=== PATIENT | female | born 1970 | race Caucasian/White ===

== ENCOUNTER 2016-11-07 10:36 | Inpatient (IN) | payer BC ==
[~2016-11-07] VITALS: Ht 160 cm; Wt 60.0 kg
[~2016-11-07 10:36] MED LIST: ASPIRIN81 MG PO; ATIVAN1 MG PO; BYSTOLIC2.5 MG PO; CELEXA40 MG PO; FIBRICOR35 MG PO; LANOXIN0.5 MG PO; LEVOTHYROXINE0.05 MG PO; LIDEX 0.05% GEL60 GM PO; NALTREXONE PO; NEXIUM40 MG PO; PREDNICOT20 MG PO; RESTORIL15 MG PO; SKELAXIN800 MG PO; SYNTHROID0.05 MG PO; ULTRAM50 MG PO; VICODIN ES 7501 TAB PO; ZITHROMAX Z PA250 MG PO
[2016-11-07] MEDS ORDERED: Lopressor25 MG PO (10:41)
[2016-11-07 10:43] VITALS: BP 120/76
[2016-11-07 11:09] LABS: BASO % 0.7 % (0.0-1.0); EOS # 0.2 10*3/uL (0.0-0.4); EOS % 3.9 % (1.0-4.0); HEMATOCRIT 41.8 % (37.0-47.0); HEMOGLOBIN 14.2 g/dl (12.0-16.0); LYMPH # 2.1 10*3/uL (1.3-4.4); LYMPH % 34.9 % (27.0-41.0); MEAN CELL VOLUME 87.1 fl (81.0-99.0); MEAN CORPUSCULAR HGB 29.6 pg (27.0-31.0); MONO # 0.4 10*3/uL (0.1-1.0); MONO % 7.4 % (3.0-9.0); NEUT # 3.1 10*3/uL (2.3-7.9); NEUT % 52.8 % (47.0-73.0); PLATELET COUNT AUTOMATED 315 10*3/uL (130-400); WHITE BLOOD COUNT 5.9 10*3/uL (4.8-10.8)
[2016-11-07 11:25] LABS: ALBUMIN 4.2 gm/dl (3.1-4.5); ALKALINE PHOSPHATASE 111 U/L (45-117); BILIRUBIN, TOTAL 0.6 mg/dl (0.2-1.0); BUN 12 mg/dl (7-24); CARBON DIOXIDE 28 mmol/L (21-32); CHLORIDE 104 mmol/L (98-107); EST GLOM FILT AFRICAN AMERICAN > 60 ml/min; GLUCOSE 98 mg/dL (65-99); POTASSIUM 4.8 mmol/L (3.5-5.1); SGOT/AST 16 IU/L (3-35); SGPT/ALT 20 U/L (12-78); SODIUM 141 mmol/L (136-145); TOTAL PROTEIN 7.7 gm/dL (6.4-8.2)
[2016-11-07 11:27] LABS: TROPONIN I < 0.015 ng/ml (<0.045)
[2016-11-07 11:32] LABS: BILIRUBIN NEGATIVE (NEGATIVE); BLOOD NEGATIVE (NEGATIVE); CLARITY CLEAR (CLEAR); COLOR YELLOW (YELLOW); GLUCOSE NEGATIVE (NEGATIVE); KETONE NEGATIVE (NEGATIVE); LEUKO ESTERASE TRACE (NEGATIVE); NITRITE NEGATIVE (NEGATIVE); PH 6.5 (5.0-9.0); PROTEIN NEGATIVE (NEGATIVE); SPECIFIC GRAVITY <= 1.005 (1.005-1.030); UROBILINOGEN 0.2 E.U./dl (0.2-1.0)
[2016-11-07 11:42] LABS: BACTERIA TRACE; RBC 0-2 rbc/hpf (0-2); URINE REFLEX COMMENT YES (NO)
[2016-11-07 12:41] VITALS: BP 106/61
[2016-11-07 13:54] VITALS: BP 100/70
[2016-11-07 14:30] VITALS: BP 117/70
[2016-11-07 16:00] VITALS: BP 109/70
[2016-11-07 18:32] LABS: CKMB < 0.5 ng/ml (0.5-3.6); CPK 49 U/L (26-192); TROPONIN I < 0.015 ng/ml (<0.045)
[2016-11-07 20:00] VITALS: BP 113/64
[2016-11-08] VITALS: BP 106/70
[2016-11-08 00:18] LABS: CPK 52 U/L (26-192)
[2016-11-08 00:19] LABS: CKMB < 0.5 ng/ml (0.5-3.6)
[2016-11-08 06:16] LABS: BASO % 0.7 % (0.0-1.0); EOS # 0.2 10*3/uL (0.0-0.4); EOS % 4.1 % (1.0-4.0); HEMATOCRIT 39.1 % (37.0-47.0); HEMOGLOBIN 13.1 g/dl (12.0-16.0); LYMPH # 2.5 10*3/uL (1.3-4.4); LYMPH % 45.4 % (27.0-41.0); MEAN CELL VOLUME 88.7 fl (81.0-99.0); MEAN CORPUSCULAR HGB 29.7 pg (27.0-31.0); MEAN CORPUSCULAR HGB CONC 33.5 g/dl (33.0-37.0); MONO # 0.5 10*3/uL (0.1-1.0); NEUT # 2.3 10*3/uL (2.3-7.9); NEUT % 41.6 % (47.0-73.0); PLATELET COUNT AUTOMATED 256 10*3/uL (130-400); RED BLOOD COUNT 4.41 10*6/uL (4.10-5.10); WHITE BLOOD COUNT 5.6 10*3/uL (4.8-10.8)
[2016-11-08 06:27] LABS: CHLORIDE 109 mmol/L (98-107); POTASSIUM 4.1 mmol/L (3.5-5.1); SODIUM 143 mmol/L (136-145)
[2016-11-08 06:38] LABS: CPK 51 U/L (26-192)
[2016-11-08 06:39] LABS: ALBUMIN 3.4 gm/dl (3.1-4.5); ALKALINE PHOSPHATASE 93 U/L (45-117); BILIRUBIN, TOTAL 0.6 mg/dl (0.2-1.0); BUN 9 mg/dl (7-24); CARBON DIOXIDE 25 mmol/L (21-32); CHOLESTEROL 186 mg/dL (<200); EST GLOM FILT AFRICAN AMERICAN > 60 ml/min; GLUCOSE 97 mg/dL (65-99); HDL CHOLESTEROL 70 mg/dl (40-60); INTERNATIONAL NORM RATIO 1.1 (2.0-3.5); LDL CHOLESTEROL 101 mg/dL (9-159); PHOSPHOROUS 4.2 mg/dL (2.5-4.9); PROTHROMBIN TIME 11.2 SECONDS (9.0-12.4); SGOT/AST 19 IU/L (3-35); SGPT/ALT 21 U/L (12-78); TOTAL PROTEIN 6.5 gm/dL (6.4-8.2); TRIGLYCERIDES 73 mg/dl (<150); VLDL CHOLESTEROL 15 mg/dL (6-40)
[2016-11-08 06:44] LABS: CKMB < 0.5 ng/ml (0.5-3.6)
[2016-11-08 06:50] LABS: HEMOGLOBIN A1c 5.7 % (4.8-5.6)
[2016-11-08 07:18] LABS: FOLIC ACID 15.31 ng/mL (>5.38); VITAMIN D, 25-HYDROXY 32.2 ng/mL (30-100)
[2016-11-08 08:00] VITALS: BP 108/66
[2016-11-08 12:00] VITALS: BP 102/66
[2016-11-08 16:00] VITALS: BP 110/59
[2016-11-08 20:00] VITALS: BP 104/51
[2016-11-09] VITALS: BP 96/51
[2016-11-09 08:00] VITALS: BP 100/62
[2016-11-09] MEDS ORDERED: Synthroid,Levo50 MCG PO (09:38)
[2016-11-09 12:00] VITALS: BP 106/50
[2016-11-09] MEDS ORDERED: B12,B-12,B 12500 MC1 PO (12:09)
[2016-11-09] MEDS ORDERED: SYNTHROID,LEVO75 MCG PO (12:09)
== END 2016-11-09 14:40 | disposition home or self-care (01) | DRG 312 ==
LOC: ED 10:36 → 5E 13:11 → EDHOLD 13:11 → 5E 13:33
PROVIDERS: Hospitalist; Physician Assistant
DX: R55 Syncope and collapse (principal); E53.8 Deficiency of other specified B group vitamins; R42 Dizziness and giddiness; R53.1 Weakness; F41.9 Anxiety disorder, unspecified; E03.9 Hypothyroidism, unspecified; I05.0 Rheumatic mitral stenosis; R00.2 Palpitations; Z88.8 Allergy status to other drugs, medicaments and biological substances; Z79.899 Other long term (current) drug therapy; Z90.710 Acquired absence of both cervix and uterus; Z86.73 Personal history of transient ischemic attack (TIA), and cerebral infarction without residual deficits; Z82.49 Family history of ischemic heart disease and other diseases of the circulatory system

== ENCOUNTER 2017-06-03 15:06 | Inpatient (IN) | payer BC, MEDICARE ==
[~2017-06-03] VITALS: Ht 160 cm; Wt 67.1 kg
[~2017-06-03 15:06] MED LIST changes: +B12,B-12,B 12500 MC1 PO; +Lopressor25 MG PO; +SYNTHROID,LEVO75 MCG PO; +Synthroid,Levo50 MCG PO
[2017-06-03 15:25] VITALS: BP 100/48
[2017-06-03 15:40] LABS: BASO % 0.3 % (0.0-1.0); EOS # 0.2 10*3/uL (0.0-0.4); EOS % 2.8 % (1.0-4.0); HEMATOCRIT 41.4 % (37.0-47.0); LYMPH # 2.1 10*3/uL (1.3-4.4); MEAN CELL VOLUME 85.2 fl (81.0-99.0); MEAN CORPUSCULAR HGB 28.8 pg (27.0-31.0); MEAN CORPUSCULAR HGB CONC 33.8 g/dl (33.0-37.0); MEAN PLATELET VOLUME 8.9 fl (9.6-12.3); MONO # 0.5 10*3/uL (0.1-1.0); MONO % 6.7 % (3.0-9.0); NEUT # 4.1 10*3/uL (2.3-7.9); NEUT % 58.9 % (47.0-73.0); PLATELET COUNT AUTOMATED 353 10*3/uL (130-400); RED BLOOD COUNT 4.86 10*6/uL (4.10-5.10); RED CELL DISTRI WIDTH 11.8 % (0-14.5); WHITE BLOOD COUNT 6.9 10*3/uL (4.8-10.8)
[2017-06-03 15:53] LABS: ACT PARTIAL THROMBO TIME 26.1 SECONDS (20.8-31.5)
[2017-06-03 15:57] LABS: ALBUMIN 4.1 gm/dl (3.1-4.5); ALKALINE PHOSPHATASE 145 U/L (45-117); BUN 13 mg/dl (7-24); CHLORIDE 106 mmol/L (98-107); CREATININE 0.82 mg/dL (0.55-1.02); POTASSIUM 4.4 mmol/L (3.5-5.1); SGOT/AST 43 IU/L (3-35); SGPT/ALT 62 U/L (12-78); SODIUM 141 mmol/L (136-145); TOTAL PROTEIN 7.5 gm/dL (6.4-8.2)
[2017-06-03 16:00] LABS: TROPONIN I < 0.015 ng/ml (<0.045)
[2017-06-03 17:10] VITALS: BP 92/68
[2017-06-03 17:29] VITALS: BP 93/45
[2017-06-03] MEDS ORDERED: GABAPENTIN100 M2 PO (18:15)
[2017-06-03] MEDS ORDERED: LEVOXYL88 MCG PO (18:17)
[2017-06-03] MEDS ORDERED: B-121000 MCG PO (18:18)
[2017-06-03 20:05] VITALS: BP 117/70
[2017-06-04] VITALS: BP 117/59
[2017-06-04 05:32] LABS: BILIRUBIN NEGATIVE (NEGATIVE); BLOOD NEGATIVE (NEGATIVE); CLARITY SL CLOUDY (CLEAR); COLOR YELLOW (YELLOW); GLUCOSE NEGATIVE (NEGATIVE); KETONE NEGATIVE (NEGATIVE); LEUKO ESTERASE 1+ (NEGATIVE); NITRITE NEGATIVE (NEGATIVE); UROBILINOGEN 0.2 E.U./dl (0.2-1.0)
[2017-06-04 05:42] LABS: BACTERIA TRACE; WBC 21-30 wbc/hpf (0-5)
[2017-06-04 05:53] LABS: BASO % 0.3 % (0.0-1.0); EOS # 0.3 10*3/uL (0.0-0.4); EOS % 3.6 % (1.0-4.0); HEMOGLOBIN 12.1 g/dl (12.0-16.0); LYMPH # 2.8 10*3/uL (1.3-4.4); LYMPH % 38.9 % (27.0-41.0); MEAN CELL VOLUME 84.9 fl (81.0-99.0); MEAN CORPUSCULAR HGB 29.1 pg (27.0-31.0); MEAN CORPUSCULAR HGB CONC 34.3 g/dl (33.0-37.0); MEAN PLATELET VOLUME 9.4 fl (9.6-12.3); MONO # 0.6 10*3/uL (0.1-1.0); MONO % 7.7 % (3.0-9.0); NEUT # 3.6 10*3/uL (2.3-7.9); NEUT % 49.4 % (47.0-73.0); PLATELET COUNT AUTOMATED 305 10*3/uL (130-400); RED BLOOD COUNT 4.16 10*6/uL (4.10-5.10); RED CELL DISTRI WIDTH 11.8 % (0-14.5); WHITE BLOOD COUNT 7.2 10*3/uL (4.8-10.8)
[2017-06-04 05:54] LABS: ALBUMIN 3.1 gm/dl (3.1-4.5); ALKALINE PHOSPHATASE 123 U/L (45-117); BUN 8 mg/dl (7-24); CHLORIDE 111 mmol/L (98-107); CHOLESTEROL 130 mg/dL (<200); CREATININE 0.75 mg/dL (0.55-1.02); FREE T4 1.07 ng/dl (0.76-1.46); HDL CHOLESTEROL 58 mg/dl (40-60); HEMATOCRIT 35.3 % (37.0-47.0); LDL CHOLESTEROL 56 mg/dL (9-159); PHOSPHOROUS 3.9 mg/dL (2.5-4.9); POTASSIUM 3.9 mmol/L (3.5-5.1); SGOT/AST 32 IU/L (3-35); SGPT/ALT 48 U/L (12-78); SODIUM 144 mmol/L (136-145); TOTAL PROTEIN 5.9 gm/dL (6.4-8.2); TRIGLYCERIDES 81 mg/dl (<150); VLDL CHOLESTEROL 16 mg/dL (6-40)
[2017-06-04 07:30] VITALS: BP 118/72
[2017-06-04 07:36] LABS: VITAMIN D, 25-HYDROXY 21.5 ng/mL (30-100)
[2017-06-04 11:15] VITALS: BP 119/58
[2017-06-04] MEDS ORDERED: VITAMIN D31000 UNI1 PO (12:34)
== END 2017-06-04 15:50 | disposition home or self-care (01) | DRG 552 ==
LOC: ED 15:06 → EDHOLD 17:02 → 4E 17:02
PROVIDERS: Emergency Medicine; Family Medicine
DX: S32.10XA Unspecified fracture of sacrum, initial encounter for closed fracture (principal); I95.9 Hypotension, unspecified; E83.41 Hypermagnesemia; F33.9 Major depressive disorder, recurrent, unspecified; R55 Syncope and collapse; R73.9 Hyperglycemia, unspecified; I00 Rheumatic fever without heart involvement; G44.319 Acute post-traumatic headache, not intractable; F41.9 Anxiety disorder, unspecified; N80.9 Endometriosis, unspecified; M79.7 Fibromyalgia; E53.8 Deficiency of other specified B group vitamins; E03.9 Hypothyroidism, unspecified; W18.39XA Other fall on same level, initial encounter; Y93.89 Activity, other specified; Y92.89 Other specified places as the place of occurrence of the external cause; Y99.8 Other external cause status; Z88.8 Allergy status to other drugs, medicaments and biological substances; Z86.79 Personal history of other diseases of the circulatory system; Z90.49 Acquired absence of other specified parts of digestive tract; Z90.710 Acquired absence of both cervix and uterus

== ENCOUNTER 2019-02-02 11:36 | Inpatient (IN) | payer MEDICARE ==
[~2019-02-02] VITALS: Ht 160 cm; Wt 62.7 kg
[2019-02-02 11:36] VITALS: BP 105/66
[~2019-02-02 11:36] MED LIST changes: +B-121000 MCG PO; +GABAPENTIN100 M2 PO; +LEVOXYL88 MCG PO; +VITAMIN D31000 UNI1 PO
[2019-02-02 11:56] LABS: BASO # 0.1 10*3/uL (0.0-0.1); BASO % 0.8 % (0.0-1.0); EOS # 0.2 10*3/uL (0.0-0.4); EOS % 3.1 % (1.0-4.0); HEMATOCRIT 41.5 % (37.0-47.0); LYMPH # 2.2 10*3/uL (1.3-4.4); LYMPH % 34.6 % (27.0-41.0); MEAN CELL VOLUME 86.6 fl (81.0-99.0); MEAN CORPUSCULAR HGB 29.2 pg (27.0-31.0); MEAN CORPUSCULAR HGB CONC 33.7 g/dl (33.0-37.0); MEAN PLATELET VOLUME 9.3 fl (9.6-12.3); MONO # 0.4 10*3/uL (0.1-1.0); MONO % 6.9 % (3.0-9.0); NEUT # 3.5 10*3/uL (2.3-7.9); NEUT % 54.1 % (47.0-73.0); PLATELET COUNT AUTOMATED 343 10*3/uL (130-400); RED BLOOD COUNT 4.79 10*6/uL (4.10-5.10); RED CELL DISTRI WIDTH 11.8 % (0-14.5); WHITE BLOOD COUNT 6.4 10*3/uL (4.8-10.8)
[2019-02-02 12:07] LABS: ACT PARTIAL THROMBO TIME 24.2 SECONDS (20.0-32.1)
[2019-02-02 12:14] LABS: ALKALINE PHOSPHATASE 105 U/L (45-117); BUN 15 mg/dl (7-24); CHLORIDE 107 mmol/L (98-107); CREATININE 1.01 mg/dL (0.55-1.02); POTASSIUM 4.5 mmol/L (3.5-5.1); SGOT/AST 15 IU/L (3-35); SGPT/ALT 19 U/L (12-78); SODIUM 138 mmol/L (136-145); TOTAL PROTEIN 7.6 gm/dL (6.4-8.2)
[2019-02-02 12:21] LABS: TROPONIN I < 0.015 ng/ml (<0.045)
[2019-02-02 12:25] VITALS: BP 114/59
--- NOTE | 2019-02-02 13:50 | NUR ---
A 48, admitted to , under the services of ELMER Oropeza DO with a diagnosis of SYNCOPE & COLLAPSE. Chief complaint is PASSED OUT X2. Patient arrived via ambulance from ER. Monitor applied. Initial assessment completed. Vital signs taken and recorded. ELMER OROPEZA DO notified of admission to the unit. Orders received. See assessment for past medical history, medications and allergies. Patient and/or family oriented to unit. [facility] visitation policy reviewed. Clothing/patient valuable form completed. VIKASH HARMAN
[2019-02-02 14:04] VITALS: BP 121/64
--- NOTE | 2019-02-02 15:49 | NUR ---
ORTHOSTATIC BP TAKEN AT THIS TIME PER ORDER, PT ASYMPTOMATIC.
[2019-02-02 16:00] VITALS: BP 103/65
--- NOTE | 2019-02-02 19:30 | NUR ---
24 HR chart check completed.
[2019-02-02 20:00] VITALS: BP 112/69
--- NOTE | 2019-02-02 21:00 | NUR ---
RESTING IN BED VISITING WITH FRIEND. RESPIRATIONS EASY. LUNGS DIMINISHED, CLEAR. PULSE OX 98% RA. IV FLUIDS INFUSING PER ORDER. CALL LIGHT WITHIN REACH. NO VOICED COMPLAINTS.
[2019-02-03] VITALS: BP 104/58
--- NOTE | 2019-02-03 | NUR ---
SLEEPING. NO DISTRESS NOTED. RESPIRATIONS EASY. VSS. IV FLUIDS MAINTAINED. CALL LIGHT WITHIN REACH
[2019-02-03] MEDS ORDERED: Synthroid,Levo88 MCG PO (00:04)
--- NOTE | 2019-02-03 06:00 | NUR ---
SLEPT THROUGHOUT NIGHT WITH NO DISTRESS NOTED. RESPIRATIONS EASY. IV FLUIDS MAINTAINED. CALL LIGHT WITHIN REACH. NO VOICED COMPLAINTS THIS SHIFT
[2019-02-03 07:12] LABS: BASO % 0.6 % (0.0-1.0); EOS # 0.2 10*3/uL (0.0-0.4); EOS % 3.2 % (1.0-4.0); HEMOGLOBIN 12.5 g/dl (12.0-16.0); LYMPH # 2.8 10*3/uL (1.3-4.4); LYMPH % 39.7 % (27.0-41.0); MEAN CELL VOLUME 89.4 fl (81.0-99.0); MEAN CORPUSCULAR HGB 28.7 pg (27.0-31.0); MEAN CORPUSCULAR HGB CONC 32.1 g/dl (33.0-37.0); MEAN PLATELET VOLUME 9.8 fl (9.6-12.3); MONO # 0.6 10*3/uL (0.1-1.0); NEUT # 3.4 10*3/uL (2.3-7.9); NEUT % 48.2 % (47.0-73.0); PLATELET COUNT AUTOMATED 320 10*3/uL (130-400); RED BLOOD COUNT 4.36 10*6/uL (4.10-5.10); RED CELL DISTRI WIDTH 11.9 % (0-14.5); WHITE BLOOD COUNT 7.1 10*3/uL (4.8-10.8)
[2019-02-03 07:19] LABS: BUN 7 mg/dl (7-24); CHLORIDE 112 mmol/L (98-107); CHOLESTEROL 144 mg/dL (<200); CREATININE 0.79 mg/dL (0.55-1.02); PHOSPHOROUS 3.1 mg/dL (2.5-4.9); POTASSIUM 3.7 mmol/L (3.5-5.1); SODIUM 143 mmol/L (136-145); TRIGLYCERIDES 93 mg/dl (<150); VLDL CHOLESTEROL 19 mg/dL (6-40)
[2019-02-03 07:29] LABS: FREE T4 0.87 ng/dl (0.76-1.46); HDL CHOLESTEROL 62 mg/dl (40-60); LDL CHOLESTEROL 63 mg/dL (9-159)
[2019-02-03 07:44] LABS: VITAMIN D, 25-HYDROXY 24.6 ng/mL (30-100)
[2019-02-03 08:00] VITALS: BP 98/54
--- NOTE | 2019-02-03 09:00 | NUR ---
Director Of Business Continuity in to talk to patient. Patient states lives at home with family. There are few steps in the home. Physician: feliciano spnecer [facility] Patient's level of ADLs: INDEPENDENT Patient has working utilities: all working DME: none Follow-up physician's appointment after d/c: will be made by hospitalist nurse director upon discharge Does patient want to access PORTAL?: no Discharge plan discussed with patient, she states she lives at home with family, she is independent in adls and ambulation, she states she will return home when medically stable for discharge. ANITRA SCHOFIELD
[2019-02-03 12:00] VITALS: BP 120/65
--- NOTE | 2019-02-03 16:30 | NUR ---
PATIENT DISCHARGED TO HOME. ALL PERSONAL BELONGINGS SENT WITH PATIENT. IV AND CANE STRIPPER DISCONTINUED. DISCHARGE INSTRUCTIONS GIVEN AND REVIEWED WITH PATIENT. PATIENT INFORMED OF FOLLOW UP APPOINTMENT WITH ON 02/06 AT 1PM.
== END 2019-02-03 16:30 | disposition home or self-care (01) | DRG 312 ==
LOC: ED 11:36 → EDHOLD 12:52 → 4E 12:52
PROVIDERS: Emergency Medicine; Internal Medicine; ADMIT Internal Medicine
DX: R55 Syncope and collapse (principal); R53.1 Weakness; R42 Dizziness and giddiness; F32.9 Major depressive disorder, single episode, unspecified; F41.9 Anxiety disorder, unspecified; E03.9 Hypothyroidism, unspecified; E53.8 Deficiency of other specified B group vitamins; M79.7 Fibromyalgia; K21.9 Gastro-esophageal reflux disease without esophagitis; Z88.8 Allergy status to other drugs, medicaments and biological substances; Z86.73 Personal history of transient ischemic attack (TIA), and cerebral infarction without residual deficits; Z90.49 Acquired absence of other specified parts of digestive tract; Z90.710 Acquired absence of both cervix and uterus; Z83.49 Family history of other endocrine, nutritional and metabolic diseases; Z82.49 Family history of ischemic heart disease and other diseases of the circulatory system; Z80.8 Family history of malignant neoplasm of other organs or systems; Z79.890 Hormone replacement therapy; Z95.2 Presence of prosthetic heart valve

== ENCOUNTER 2020-02-08 18:13 | Observation (INO) | payer MEDICARE ==
[~2020-02-08] VITALS: Ht 160 cm; Wt 65.4 kg
[~2020-02-08 18:13] MED LIST changes: +Synthroid,Levo88 MCG PO
[2020-02-08 18:34] VITALS: BP 132/73
[2020-02-08 18:53] LABS: BASO % 0.5 % (0.0-1.0); EOS # 0.2 10*3/uL (0.0-0.4); EOS % 3.2 % (1.0-4.0); LYMPH # 2.6 10*3/uL (1.3-4.4); LYMPH % 34.2 % (27.0-41.0); MEAN CELL VOLUME 88.5 fl (81.0-99.0); MEAN CORPUSCULAR HGB 28.8 pg (27.0-31.0); MEAN CORPUSCULAR HGB CONC 32.5 g/dl (33.0-37.0); MEAN PLATELET VOLUME 8.9 fl (9.6-12.3); MONO # 0.6 10*3/uL (0.1-1.0); MONO % 7.6 % (3.0-9.0); NEUT # 4.1 10*3/uL (2.3-7.9); NEUT % 54.2 % (47.0-73.0); PLATELET COUNT AUTOMATED 360 10*3/uL (130-400); RED BLOOD COUNT 4.52 10*6/uL (4.10-5.10); WHITE BLOOD COUNT 7.5 10*3/uL (4.8-10.8)
[2020-02-08 19:03] LABS: ACT PARTIAL THROMBO TIME 27.8 SECONDS (20.0-32.1)
[2020-02-08 19:13] LABS: ALBUMIN 3.8 gm/dl (3.1-4.5); ALKALINE PHOSPHATASE 123 U/L (45-117); BUN 11 mg/dl (7-24); CHLORIDE 109 mmol/L (98-107); CREATININE 1.54 mg/dL (0.55-1.02); POTASSIUM 4.9 mmol/L (3.5-5.1); SGOT/AST 35 IU/L (3-35); SGPT/ALT 49 U/L (12-78); SODIUM 141 mmol/L (136-145); TOTAL PROTEIN 7.2 gm/dL (6.4-8.2)
[2020-02-08 19:19] LABS: TROPONIN I < 0.015 ng/ml (<0.045)
[2020-02-08 20:47] VITALS: BP 112/64
[2020-02-08 21:11] VITALS: BP 118/65
[2020-02-08] MEDS ORDERED: Synthroid,Lev100 MCG PO (22:11)
[2020-02-09] VITALS: BP 124/65
[2020-02-09 05:57] LABS: ALBUMIN 3.3 gm/dl (3.1-4.5); ALKALINE PHOSPHATASE 104 U/L (45-117); BUN 11 mg/dl (7-24); CHLORIDE 113 mmol/L (98-107); CHOLESTEROL 147 mg/dL (<200); CREATININE 0.91 mg/dL (0.55-1.02); FREE T4 1.14 ng/dl (0.76-1.46); HDL CHOLESTEROL 63 mg/dl (40-60); LDL CHOLESTEROL 66 mg/dL (9-159); SGOT/AST 24 IU/L (3-35); SGPT/ALT 38 U/L (12-78); SODIUM 143 mmol/L (136-145); TOTAL PROTEIN 6.3 gm/dL (6.4-8.2); TRIGLYCERIDES 92 mg/dl (<150); VLDL CHOLESTEROL 18 mg/dL (6-40)
[2020-02-09 06:14] LABS: BASO % 0.6 % (0.0-1.0); EOS # 0.3 10*3/uL (0.0-0.4); EOS % 4.7 % (1.0-4.0); LYMPH # 2.7 10*3/uL (1.3-4.4); LYMPH % 44.1 % (27.0-41.0); MEAN CORPUSCULAR HGB 28.8 pg (27.0-31.0); MEAN CORPUSCULAR HGB CONC 32.3 g/dl (33.0-37.0); MEAN PLATELET VOLUME 9.4 fl (9.6-12.3); MONO # 0.4 10*3/uL (0.1-1.0); MONO % 6.9 % (3.0-9.0); NEUT # 2.7 10*3/uL (2.3-7.9); NEUT % 43.5 % (47.0-73.0); PLATELET COUNT AUTOMATED 335 10*3/uL (130-400); RED BLOOD COUNT 4.38 10*6/uL (4.10-5.10); RED CELL DISTRI WIDTH 11.9 % (0-14.5); WHITE BLOOD COUNT 6.2 10*3/uL (4.8-10.8)
[2020-02-09 06:18] LABS: ACT PARTIAL THROMBO TIME 29.4 SECONDS (20.0-32.1)
[2020-02-09 08:00] VITALS: BP 111/75
[2020-02-09 12:00] VITALS: BP 118/74
== END 2020-02-09 16:06 | disposition home or self-care (01) ==
LOC: ED 18:13 → EDHOLD 20:15 → 5E 21:07
PROVIDERS: Emergency Medicine; Internal Medicine; ADMIT Internal Medicine; ATTEND Internal Medicine
DX: R07.89 Other chest pain (principal); E87.8 Other disorders of electrolyte and fluid balance, not elsewhere classified; E83.41 Hypermagnesemia; R06.00 Dyspnea, unspecified; F41.9 Anxiety disorder, unspecified; E03.9 Hypothyroidism, unspecified; N17.0 Acute kidney failure with tubular necrosis; E53.8 Deficiency of other specified B group vitamins; M79.7 Fibromyalgia; F32.9 Major depressive disorder, single episode, unspecified; K21.9 Gastro-esophageal reflux disease without esophagitis

== ENCOUNTER 2020-07-13 04:44 | Emergency (ER) | payer BC, MEDICARE ==
[~2020-07-13 04:44] MED LIST changes: +Synthroid,Lev100 MCG PO
[2020-07-13 05:08] VITALS: BP 124/76
[2020-07-13] MEDS ORDERED: NAPROXEN250 MG PO (06:05)
[2020-07-13] MEDS ORDERED: ROBAXIN-750750 MG PO (06:05)
== END 2020-07-13 06:32 | disposition home or self-care (01) ==
LOC: ED 04:44
DX: M54.6 Pain in thoracic spine (principal); K21.9 Gastro-esophageal reflux disease without esophagitis; Z88.8 Allergy status to other drugs, medicaments and biological substances; Z79.899 Other long term (current) drug therapy; Z90.711 Acquired absence of uterus with remaining cervical stump; Z95.818 Presence of other cardiac implants and grafts; Z90.49 Acquired absence of other specified parts of digestive tract; Z95.2 Presence of prosthetic heart valve; Z98.890 Other specified postprocedural states; Z86.73 Personal history of transient ischemic attack (TIA), and cerebral infarction without residual deficits

== ENCOUNTER → 2020-12-07 | Outpatient (CLI) | payer BC, MEDICARE ==
[~2020-12-07] MED LIST changes: +NAPROXEN250 MG PO; +ROBAXIN-750750 MG PO
== END | disposition home or self-care (01) ==
LOC: US 10:50
PROVIDERS: ATTEND Family Medicine
DX: K76.89 Other specified diseases of liver (principal); R74.8 Abnormal levels of other serum enzymes

== ENCOUNTER → 2020-12-27 | Outpatient (CLI) | payer BC, MEDICARE ==
[2020-12-27 09:38] LABS: BASO % 0.7 % (0.0-1.0); EOS # 0.2 10*3/uL (0.0-0.4); EOS % 3.7 % (1.0-4.0); HEMATOCRIT 41.4 % (37.0-47.0); LYMPH % 33.2 % (27.0-41.0); MEAN CELL VOLUME 87.9 fl (81.0-99.0); MEAN CORPUSCULAR HGB 29.1 pg (27.0-31.0); MEAN CORPUSCULAR HGB CONC 33.1 g/dl (33.0-37.0); MEAN PLATELET VOLUME 8.9 fl (9.6-12.3); MONO # 0.4 10*3/uL (0.1-1.0); NEUT # 3.4 10*3/uL (2.3-7.9); NEUT % 55.1 % (47.0-73.0); PLATELET COUNT AUTOMATED 356 10*3/uL (130-400); RED BLOOD COUNT 4.71 10*6/uL (4.10-5.10); RED CELL DISTRI WIDTH 12.2 % (0-14.5); WHITE BLOOD COUNT 6.2 10*3/uL (4.8-10.8)
[2020-12-27 09:58] LABS: TOTAL PROTEIN 7.5 gm/dL (6.4-8.2)
[2020-12-28 08:07] LABS: HEPATITIS A AB, TOTAL Negative (Negative); HEPATITIS B SURFACE AB Non Reactive (.)
[2020-12-30 00:06] LABS: AST (SGOT) P5P 37 IU/L (0-40); CHOLESTEROL, TOTAL 196 mg/dL (100-199); GLUCOSE, SERUM 102 mg/dL (65-99); TRIGLYCERIDES 89 mg/dL (0-149)
== END | disposition home or self-care (01) ==
LOC: LAB 09:13
PROVIDERS: ATTEND Physician Assistant
DX: Z11.59 Encounter for screening for other viral diseases (principal); K76.0 Fatty (change of) liver, not elsewhere classified; R74.8 Abnormal levels of other serum enzymes; Z72.89 Other problems related to lifestyle

== ENCOUNTER 2021-01-18 10:16 | Emergency (ER) | payer BC, MEDICARE ==
[~2021-01-18] VITALS: Ht 160 cm; Wt 63.0 kg
[2021-01-18 10:32] VITALS: BP 147/82
== END 2021-01-18 13:59 | disposition home or self-care (01) ==
LOC: ED 10:16
DX: J02.9 Acute pharyngitis, unspecified (principal); Z20.822 Contact with and (suspected) exposure to COVID-19; R09.89 Other specified symptoms and signs involving the circulatory and respiratory systems; R11.0 Nausea; R53.83 Other fatigue; Z88.8 Allergy status to other drugs, medicaments and biological substances; Z79.899 Other long term (current) drug therapy

== ENCOUNTER 2021-04-26 21:46 | Inpatient (IN) | payer BC, MEDICARE ==
[~2021-04-26] VITALS: Ht 160 cm; Wt 65.4 kg
[2021-04-26 21:58] VITALS: BP 126/72
[2021-04-26 23:15] LABS: BASO % 0.1 % (0.0-1.0); EOS % 0.4 % (1.0-4.0); HEMATOCRIT 41.9 % (37.0-47.0); LYMPH # 1.5 10*3/uL (1.3-4.4); LYMPH % 17.8 % (27.0-41.0); MEAN CELL VOLUME 87.1 fl (81.0-99.0); MEAN CORPUSCULAR HGB 29.3 pg (27.0-31.0); MEAN CORPUSCULAR HGB CONC 33.7 g/dl (33.0-37.0); MEAN PLATELET VOLUME 8.7 fl (9.6-12.3); MONO # 0.8 10*3/uL (0.1-1.0); MONO % 9.9 % (3.0-9.0); NEUT % 71.4 % (47.0-73.0); PLATELET COUNT AUTOMATED 266 10*3/uL (130-400); RED BLOOD COUNT 4.81 10*6/uL (4.10-5.10); RED CELL DISTRI WIDTH 11.9 % (0-14.5); WHITE BLOOD COUNT 8.4 10*3/uL (4.8-10.8)
[2021-04-26 23:32] LABS: ALBUMIN 3.6 gm/dl (3.1-4.5); ALKALINE PHOSPHATASE 157 U/L (45-117); BUN 9 mg/dl (7-24); CHLORIDE 105 mmol/L (98-107); LIPASE 174 U/L (73-393); POTASSIUM 3.8 mmol/L (3.5-5.1); SGOT/AST 35 IU/L (3-35); SGPT/ALT 69 U/L (12-78); SODIUM 136 mmol/L (136-145); TOTAL PROTEIN 7.5 gm/dL (6.4-8.2)
[2021-04-27] VITALS (12 sets, daily range): BP systolic 97–118; BP diastolic 53–72
[2021-04-27 01:46] LABS: BILIRUBIN Negative (Negative); BLOOD 1+ (Negative); CLARITY Clear (Clear); COLOR Yellow (Yellow); GLUCOSE Negative (Negative); KETONE Trace (Negative); LEUKO ESTERASE Trace (Negative); NITRITE Negative (Negative); SPECIFIC GRAVITY <= 1.005 (1.001-1.030); UROBILINOGEN 0.2 E.U./dl (0.0-1.0)
[2021-04-27 05:21] LABS: FREE T4 1.47 ng/dl (0.76-1.46); THYROID STIM HORMONE (HS) 0.586 uIU/ml (0.358-4.75)
[2021-04-27 07:41] LABS: VITAMIN D, 25-HYDROXY 56.7 ng/mL (30-100)
[2021-04-28] VITALS: BP 110/60
[2021-04-28 08:00] VITALS: BP 105/61; BP 112/64
[2021-04-28] MEDS ORDERED: COLACE100 MG PO (12:15)
[2021-04-28] MEDS ORDERED: HYDROCODONE-AC1 EAC1 PO (12:15)
== END 2021-04-28 12:55 | disposition home or self-care (01) | DRG 341 ==
LOC: ED 21:46 → 4E 04-27 03:18 → EDHOLD 04-27 03:18 → 4E 04-27 04:31
PROVIDERS: Emergency Medicine; Internal Medicine; ADMIT Student in an Organized Health Care Education/Training Program; ATTEND Student in an Organized Health Care Education/Training Program
PROC: 0DTJ4ZZ Resection of Appendix, Percutaneous Endoscopic Approach (ICD-10-PCS; principal; 2021-04-27)
DX: K35.80 Unspecified acute appendicitis (principal); U07.1 COVID-19; R73.9 Hyperglycemia, unspecified; E03.9 Hypothyroidism, unspecified; F41.9 Anxiety disorder, unspecified; E53.8 Deficiency of other specified B group vitamins; M79.7 Fibromyalgia; Z68.25 Body mass index [BMI] 25.0-25.9, adult; F32.A Depression, unspecified; K21.9 Gastro-esophageal reflux disease without esophagitis; Z86.73 Personal history of transient ischemic attack (TIA), and cerebral infarction without residual deficits; Z88.8 Allergy status to other drugs, medicaments and biological substances; Z90.49 Acquired absence of other specified parts of digestive tract; Z90.710 Acquired absence of both cervix and uterus; Z82.49 Family history of ischemic heart disease and other diseases of the circulatory system

== ENCOUNTER 2022-08-29 15:15 | Emergency (ER) | payer MEDICARE ==
[~2022-08-29] VITALS: Ht 160 cm; Wt 67.1 kg
[~2022-08-29 15:15] MED LIST changes: +COLACE100 MG PO; +HYDROCODONE-AC1 EAC1 PO
[2022-08-29 15:56] LABS: BASO # 0.1 10*3/uL (0.0-0.1); BASO % 0.6 % (0.0-1.0); EOS # 0.1 10*3/uL (0.0-0.4); EOS % 1.2 % (1.0-4.0); HEMATOCRIT 42.5 % (37.0-47.0); LYMPH # 1.9 10*3/uL (1.3-4.4); LYMPH % 18.6 % (27.0-41.0); MEAN CORPUSCULAR HGB 29.2 pg (27.0-31.0); MEAN CORPUSCULAR HGB CONC 33.2 g/dl (33.0-37.0); MONO # 0.6 10*3/uL (0.1-1.0); MONO % 6.1 % (3.0-9.0); NEUT # 7.4 10*3/uL (2.3-7.9); NEUT % 73.1 % (47.0-73.0); PLATELET COUNT AUTOMATED 384 10*3/uL (130-400); RED BLOOD COUNT 4.83 10*6/uL (4.10-5.10); WHITE BLOOD COUNT 10.1 10*3/uL (4.8-10.8)
[2022-08-29 16:17] LABS: ALKALINE PHOSPHATASE 173 U/L (46-116); BUN 12 mg/dl (9-23); CHLORIDE 106 mmol/L (98-107); POTASSIUM 4.5 mmol/L (3.4-5.1); SGPT/ALT 47 U/L (10-49); THYROID STIM HORMONE (HS) 0.863 uIU/ml (0.550-4.780)
[2022-08-29 18:12] VITALS: BP 120/60
== END 2022-08-29 18:54 | disposition home or self-care (01) ==
LOC: ED 15:15
PROVIDERS: Student in an Organized Health Care Education/Training Program
DX: R55 Syncope and collapse (principal); R19.7 Diarrhea, unspecified; Z95.5 Presence of coronary angioplasty implant and graft; K21.9 Gastro-esophageal reflux disease without esophagitis; Z86.718 Personal history of other venous thrombosis and embolism; Z88.8 Allergy status to other drugs, medicaments and biological substances; Z90.49 Acquired absence of other specified parts of digestive tract; Z90.710 Acquired absence of both cervix and uterus; Z98.890 Other specified postprocedural states

== ENCOUNTER 2024-06-20 16:20 | Emergency (ER) | payer BC, MEDICARE ==
[~2024-06-20] VITALS: Ht 160 cm; Wt 64.4 kg
[~2024-06-20 16:20] MED LIST changes: +ASPIRIN ADULT L81 M2 PO; +B121000 MCG/1 IM; +HYOSCYAMINE PO; +LEVOXYL112 MCG PO; +ROPINIROLE HYDRO1 MG PO
[2024-06-20 16:30] VITALS: BP 129/69
[2024-06-20 16:53] LABS: BASO # 0.1 10*3/uL (0.0-0.1); BASO % 0.7 % (0.0-1.0); EOS # 0.2 10*3/uL (0.0-0.4); EOS % 2.5 % (1.0-4.0); HEMATOCRIT 40.8 % (37.0-47.0); MEAN CELL VOLUME 87.9 fl (81.0-99.0); MEAN CORPUSCULAR HGB 29.1 pg (27.0-31.0); MEAN CORPUSCULAR HGB CONC 33.1 g/dl (33.0-37.0); MEAN PLATELET VOLUME 9.2 fl (9.6-12.3); MONO # 0.5 10*3/uL (0.1-1.0); MONO % 6.2 % (3.0-9.0); NEUT # 4.8 10*3/uL (2.3-7.9); NEUT % 59.2 % (47.0-73.0); PLATELET COUNT AUTOMATED 327 10*3/uL (130-400); RED BLOOD COUNT 4.64 10*6/uL (4.10-5.10); WHITE BLOOD COUNT 8.1 10*3/uL (4.8-10.8)
[2024-06-20 17:04] LABS: ACT PARTIAL THROMBO TIME 26.5 SECONDS (20.0-32.1)
[2024-06-20 17:14] LABS: ALKALINE PHOSPHATASE 114 U/L (46-116); BUN 11 mg/dl (9-23); CHLORIDE 105 mmol/L (98-107); POTASSIUM 3.7 mmol/L (3.4-5.1); SGPT/ALT 16 U/L (5-49); TOTAL PROTEIN 6.9 gm/dL (6.0-8.0)
[2024-06-20 19:45] LABS: BILIRUBIN Negative (Negative); BLOOD Negative (Negative); CLARITY Clear (Clear); COLOR Yellow (Yellow); GLUCOSE Negative (Negative); KETONE Negative (Negative); LEUKO ESTERASE 1+ (Negative); NITRITE Negative (Negative); UROBILINOGEN 0.2 E.U./dl (0.0-1.0)
[2024-06-20 20:07] LABS: BACTERIA TRACE
== END 2024-06-20 20:52 | disposition home or self-care (01) ==
LOC: ED 16:20
PROVIDERS: Internal Medicine
DX: R55 Syncope and collapse (principal); R53.1 Weakness; K21.9 Gastro-esophageal reflux disease without esophagitis; Z20.822 Contact with and (suspected) exposure to COVID-19; Z79.82 Long term (current) use of aspirin; Z79.899 Other long term (current) drug therapy; Z86.73 Personal history of transient ischemic attack (TIA), and cerebral infarction without residual deficits; Z90.710 Acquired absence of both cervix and uterus; Z90.49 Acquired absence of other specified parts of digestive tract; Z98.890 Other specified postprocedural states

== ENCOUNTER → 2024-11-14 | Outpatient (CLI) | payer BC, MEDICARE | END | disposition home or self-care (01) | LOC: US 09:52 | PROVIDERS: ATTEND Family Medicine | DX: R10.13 Epigastric pain (principal); Z90.49 Acquired absence of other specified parts of digestive tract ==